=== PATIENT | male | born 1935 | race Caucasian/White ===

== ENCOUNTER → 2020-01-30 10:45 | Outpatient (BNVA) | payer MEDICARE, BC, SELFPAY | PROVIDERS: PCP Internal Medicine; Visit Provider Hospitalist | DX: J44.9 Chronic obstructive pulmonary disease, unspecified (principal); R91.8 Other nonspecific abnormal finding of lung field | CPT/HCPCS: 99212 ==

== ENCOUNTER 2020-02-24 12:06 | Outpatient (REF) | payer MEDICARE, BC, SELFPAY | END 2020-02-24 12:07 | disposition home or self-care (01) | LOC: HO.LAB 12:06 | PROVIDERS: PCP Internal Medicine; Visit Provider Internal Medicine | DX: Z20.828 Contact with and (suspected) exposure to other viral communicable diseases (principal) | CPT/HCPCS: C9803; U0003 ==

== ENCOUNTER 2020-02-28 08:03 | Emergency (ER) | payer MEDICARE, BC, SELFPAY ==
[2020-02-28 08:13] VITALS: BP 131/55; PULSE 96; RESP 24; TEMP 36.8; O2SAT 94; BMI 25.1
[2020-02-28 08:19] VITALS: RESP 16
--- NOTE | 2020-02-28 08:29 | ED_ITS ---
HPI - Male Genitourinary General Chief complaint: Urogenital-Male Stated complaint: abnormal labs Time Seen by Provider: 02/28/20 08:20 Source: patient Mode of arrival: ambulatory Limitations: no limitations History of Present Illness HPI Narrative: Patient comes to the emergency room, concerned that he has been drinking a lot of water, but he has not been urinating be equal amount that he drinks. Patient states that he has no other complaints. Patient denies any suprapubic tenderness, no flank pain, no fever, no abdominal pain chest pain or shortness of breath. Related Data Home Medications Medication Instructions Recorded Confirmed amlodipine 5 mg tablet 5 mg PO DAILY 01/30/20 01/30/20 apixaban 2.5 mg tablet 2.5 mg PO BID 01/30/20 01/30/20 atorvastatin 40 mg tablet mg PO Q OTHER DAY PRN 01/30/20 01/30/20 clonazepam 1 mg tablet 1 mg PO BID PRN 01/30/20 01/30/20 hydrochlorothiazide 25 mg tablet 25 mg PO DAILY 01/30/20 01/30/20 ipratropium 0.5 mg-albuterol 3 mg 3 ml INHALATION Q4-6H PRN 01/30/20 01/30/20 (2.5 mg base)/3 mL nebulization soln lisinopril 40 mg tablet mg PO 01/30/20 01/30/20 omeprazole 20 mg capsule,delayed mg PO 01/30/20 01/30/20 release quetiapine 50 mg tablet mg PO 01/30/20 01/30/20 Previous Rx's Medication Instructions Recorded cefixime 400 mg PO DAILY 7 Days #7 cap 02/28/20 Allergies Allergy/AdvReac Type Severity Reaction Status Date / Time No Known Allergies Allergy Verified 01/30/20 17:43 Review of Systems Review of Systems: Constitutional : No Weight loss, No Fever, No Chills, No Night Sweats, No Fatigue, No Malaise ENT/Mouth : No Hearing loss, No Ear Pain, No Nasal Congestion, No Sinus Pain, No Hoarseness, No sore throat, No Rhinorrhea, No Swallowing Difficulty Eyes: No Eye Pain, No Swelling, No Redness, No Foreign Body, No Discharge, No Vision Changes Cardiovascular : No Chest Pain, No SOB, No Dyspnea on Exertion, No Orthopnea, No Edema, No Palpitations Respiratory : No Cough, No Sputum, No Wheezing, No Smoke Exposure, No Dyspnea Gastrointestinal : No Nausea, No Vomiting, No Diarrhea, No Constipation, No abdominal Pain, No Hematochezia, No Melena Genitourinary : no irregular bleeding, No Dysuria, No Urinary Frequency, No Hematuria, No Urinary Incontinence, No Urgency, No Flank Pain, No Urinary Flow Changes, No Hesitancy Musculoskeletal : No joint pain, No Myalgias, No Joint Swelling Skin : No Skin Lesions, No rash Neuro : No Weakness, No Numbness, No Paresthesias, No Loss of Consciousness, No Dizziness, No Headache Psych : No Anxiety/Panic, No Depression, No SI/HI/AH/VH, No Social Issues, Heme/Lymph: No Bruising, No Bleeding,No Lymphadenopathy Endocrine : No Polyuria, No Polydipsia, No Temperature Intolerance [facility] Past Medical History Medical History (Updated 02/28/20 @ 16:48 by Yanet Duffy MD) COPD (chronic obstructive pulmonary disease) [place], old Pulmonary nodules Surgical History (Updated 02/28/20 @ 08:32 by Yanet Duffy MD) History of heart artery stent Social History Social History (Updated 01/30/20 @ 11:05 by Carleen Smallwood MA) Alcohol intake: never Smoking Status: Former smoker Tobacco Type: Cigarette Years Smoked: 15 years old Use of substances other than those prescribed or required for medical reasons: No Advance Directives: No Advance Directives Information Provided: No Physical Exam Vital Signs: Vital Signs: Last Vital Signs Temp 97.7 F 02/28/20 15:56 Pulse 57 02/28/20 15:56 Resp 16 02/28/20 15:56 BP 102/50 L 02/28/20 15:56 Pulse Ox 94 02/28/20 15:56 Body Mass Index 25.1 Appearance: Alert. Oriented X3. No acute distress. Eyes: Pupils equal, round and reactive to light. ENT: Pharynx normal. Neck: Normal inspection. Neck supple. No lymph nodes noted. No crepitus CVS: Normal heart rate and rhythm. Pulses normal. Normal S1 and S2 Respiratory: No respiratory distress. Breath sounds normal. No Wheezing. No rales Abdomen: Soft and nontender. No rigidity. No distention. good BS x4 Skin: Skin warm and dry. Normal skin color. Normal skin turgor. Extremities: No lower extremity edema. No lower extremity edema. No L acerations. No Rash Neuro: Oriented X 3. No motor deficit. No sensory deficit. Moving all extermit ies. No slurred speech. Course Course Course Narrative: Patient's creatinine is 1.94, we do not have any previous labs to compare this to. Given the history of drinking plenty of fluids with decreased urine output, we will rule out obstruction, CT scan pending, patient receiving IV fluids, labs to be repeated to check for creatinine improvement Patient's creatinine improved to 1.82, patient likely has chronic kidney disease. No obstruction. Urine is positive for UTI, patient being treated w ith IV ceftriaxone and oral cephalosporins for home. MDM - Male Genitourinary Lab Data Result diagrams: 02/28/20 12:19 02/28/20 16:06 Labs: Lab Results 02/28/20 02/28/20 02/28/20 Range/Units 08:58 08:58 08:58 WBC 6.4 (4.8-10.8) X10*3/uL RBC 3.65 L (4.60-5.80) X10*6/uL Hgb 10.3 L (14.0-18.0) g/dl Hct 32.0 L (42-52) % MCV 87.7 (80-98) fL MCH 28.2 (27.0-33.0) pg MCHC 32.2 (31.0-36.0) g/dl RDW 13.8 (11.0-16.0) % Plt Count 255 (160-400) X10*3/uL MPV 10.1 (9.4-12.4) fL Immature Gran % (Auto) 0.5 H (0.0-0.4) % Neut % (Auto) 73.2 H (45-73) % Lymph % (Auto) 12.6 L (20-40) % Luna % (Auto) 9.5 (2-11) % Eos % (Auto) 3.7 (0-4) % Baso % (Auto) 0.5 (0-2) % Lymph # (Auto) 0.8 L (1.2-4.9) X10*3/uL Luna # (Auto) 0.6 (0.1-1.2) X10*3/uL Eos # (Auto) 0.2 (0.0-0.4) X10*3/uL Baso # (Auto) 0.0 (0.0-0.2) X10*3/uL Abs Immat Gran (auto) 0.03 (0.00-0.03) X10*3/uL Absolute Neuts (auto) 4.7 (2.0-8.3) X10*3/uL Absolute Nucleated RBC 0.000 (0.0-0.012) X10*3/uL Nucleated RBC % (auto) 0.0 (0.0-0.2) /100WBC Sodium 132 L (135-145) mmol/L Potassium 4.6 (3.3-5.1) mmol/l Chloride 102 (96-108) mmol/L Carbon Dioxide 22 (22-29) mmol/L Anion Gap 13 (12-20) BUN 55 H (9-16) mg/dL Creatinine 1.94 H (0.5-1.4) mg/dL Estim Creat Clear Calc 30.3 Estimated GFR 33 Random Glucose 94 (60-115) mg/dL Calcium 7.8 L (8.4-10.2) mg/dL Urine Color YELLOW Urine Appearance TURBID Urine pH 5.5 (5.0-8.0) Ur Specific [place] 1.020 (1.005-1.025) Urine Protein NEG (NEG-TRACE) MG/DL Urine Glucose (UA) NEG (NEG) MG/DL Urine Ketones NEG (NEG) MG/DL Urine Blood 1+ H (NEG) Urine Nitrite POS H (NEG) Ur Leukocyte Esterase 2+ H (NEG) Urine RBC 0-2 (0) /HPF Urine WBC TNTC H (0-4) /HPF Ur Squamous Epith Cells NONE /LPF Urine Bacteria 2+ /LPF Urine Mucus 1+ /LPF 02/28/20 02/28/20 Range/Units 12:19 16:06 WBC 6.7 (4.8-10.8) X10*3/uL RBC 3.58 L (4.60-5.80) X10*6/uL Hgb 10.1 L (14.0-18.0) g/dl Hct 31.6 L (42-52) % MCV 88.3 (80-98) fL MCH 28.2 (27.0-33.0) pg MCHC 32.0 (31.0-36.0) g/dl RDW 13.7 (11.0-16.0) % Plt Count 259 (160-400) X10*3/uL MPV 10.2 (9.4-12.4) fL Immature Gran % (Auto) 0.3 (0.0-0.4) % Neut % (Auto) 70.6 (45-73) % Lymph % (Auto) 15.4 L (20-40) % Luna % (Auto) 10.0 (2-11) % Eos % (Auto) 3.0 (0-4) % Baso % (Auto) 0.7 (0-2) % Lymph # (Auto) 1.0 L (1.2-4.9) X10*3/uL Luna # (Auto) 0.7 (0.1-1.2) X10*3/uL Eos # (Auto) 0.2 (0.0-0.4) X10*3/uL Baso # (Auto) 0.1 (0.0-0.2) X10*3/uL Abs Immat Gran (auto) 0.02 (0.00-0.03) X10*3/uL Absolute Neuts (auto) 4.7 (2.0-8.3) X10*3/uL Absolute Nucleated RBC 0.000 (0.0-0.012) X10*3/uL Nucleated RBC % (auto) 0.0 (0.0-0.2) /100WBC Sodium 135 (135-145) mmol/L Potassium 4.9 (3.3-5.1) mmol/l Chloride 104 (96-108) mmol/L Carbon Dioxide 24 (22-29) mmol/L Anion Gap 12 (12-20) BUN 51 H (9-16) mg/dL Creatinine 1.82 H (0.5-1.4) mg/dL Estim Creat Clear Calc 32.3 Estimated GFR 36 Random Glucose 90 (60-115) mg/dL Calcium 7.9 L (8.4-10.2) mg/dL Urine Color Urine Appearance Urine pH (5.0-8.0) Ur Specific [place] (1.005-1.025) Urine Protein (NEG-TRACE) MG/DL Urine Glucose (UA) (NEG) MG/DL Urine Ketones (NEG) MG/DL Urine Blood (NEG) Urine Nitrite (NEG) Ur Leukocyte Esterase (NEG) Urine RBC (0) /HPF Urine WBC (0-4) /HPF Ur Squamous Epith Cells /LPF Urine Bacteria /LPF Urine Mucus /LPF Discharge Plan Discharge Clinical Impression: Urinary tract infection Qualifiers: Urinary tract infection type: site unspecified Hematuria presence: without hematuria Qualified Code(s): N39.0 - Urinary tract infection, site not specified Patient Disposition: Home, Self-Care Instructions: Urinary Tract Infection in Men (ED) Additional Instructions: Please follow-up with your primary care physician tomorrow. If you have any worsening or new symptoms, please return to the emergency room or call 911 Prescriptions: New cefixime 400 mg capsule 400 mg PO DAILY 7 Days Qty: 7 RF: 0 No Action lisinopril 40 mg tablet PO RF: 0 omeprazole 20 mg capsule,delayed release(DR/EC) PO RF: 0 amlodipine 5 mg tablet 5 mg PO DAILY RF: 0 atorvastatin 40 mg tablet PO Q OTHER DAY PRNRF: 0 Eliquis 2.5 mg tablet 2.5 mg PO BID RF: 0 hydrochlorothiazide 25 mg tablet 25 mg PO DAILY RF: 0 clonazepam 1 mg tablet 1 mg PO BID PRNRF: 0 quetiapine 50 mg tablet PO RF: 0 ipratropium-albuterol 0.5 mg-3 mg(2.5 mg base)/3 mL solution for nebulization 3 ml inhalation Q4-6H PRNRF: 0
[2020-02-28 09:03] LABS: MANUAL DIFF FLAG NO
[2020-02-28 09:04] LABS: Basophils Percent Auto 0.5 % (0-2); Eosinophils Absolute Auto 0.2 X10*3/uL (0.0-0.4); Eosinophils Percent Auto 3.7 % (0-4); Hemoglobin 10.3 g/dl (14.0-18.0); Imm Gran Abs Auto 0.03 X10*3/uL (0.00-0.03); Imm Gran Pct Auto 0.5 % (0.0-0.4); Lymphocytes Absolute Auto 0.8 X10*3/uL (1.2-4.9); Lymphocytes Percent Auto 12.6 % (20-40); Mean Corpuscular HGB Conc 32.2 g/dl (31.0-36.0); Mean Corpuscular Hemoglobin 28.2 pg (27.0-33.0); Mean Corpuscular Volume 87.7 fL (80-98); Mean Platelet Volume 10.1 fL (9.4-12.4); Monocytes Absolute Auto 0.6 X10*3/uL (0.1-1.2); Monocytes Percent Auto 9.5 % (2-11); Neutrophils Absolute Auto 4.7 X10*3/uL (2.0-8.3); Neutrophils Percent Auto 73.2 % (45-73); Platelet Count 255 X10*3/uL (160-400); Red Blood Count 3.65 X10*6/uL (4.60-5.80); Red Cell Distribution Width 13.8 % (11.0-16.0); White Blood Count 6.4 X10*3/uL (4.8-10.8)
[2020-02-28 09:05] LABS: Glucose Urine UA NEG (NEG); Leukocyte Esterase Urine 2+ (NEG); Nitrite Urine POS (NEG); PH 5.5 (5.0-8.0); Urine Blood 1+ (NEG); Urine Ketones NEG (NEG); Urine Protein NEG (NEG-TRACE)
[2020-02-28 09:22] LABS: Appearance Urine TURBID; Color Urine YELLOW
[2020-02-28 09:23] LABS: Bacteria Urine 2+ /LPF; Mucus Urine 1+ /LPF; RBC Urine 0-2 /HPF (0); WBC Urine TNTC /HPF (0-4)
[2020-02-28 09:39] LABS: Anion Gap 13 (12-20); Blood Urea Nitrogen 55 mg/dL (9-16); Calcium 7.8 mg/dL (8.4-10.2); Carbon Dioxide 22 mmol/L (22-29); Chloride 102 mmol/L (96-108); Creatinine Clr Calc Pharmacy 30.3; Estimated Glomerular Filt Rate 33; Glucose Random 94 mg/dL (60-115); Potassium 4.6 mmol/l (3.3-5.1); Sodium 132 mmol/L (135-145)
--- NOTE | 2020-02-28 09:57 | CT_ITS ---
EXAMINATION: CT ABDOMEN AND PELVIS WITHOUT CONTRAST CLINICAL INFORMATION: Evaluate for obstruction. COMPARISON: 10/21/2019 TECHNIQUE: Multidetector volumetric imaging was performed from the superior aspect of the liver through the pubic symphysis. Sagittal and coronal reformatted images were obtained on the technologist's workstation. This CT examination was performed using dose optimization techniques as appropriate, variously including the following: *Automated exposure control *Adjustment of mA and/or kV according to patient size (this includes techniques or standardized protocols for targeted exams where dose is matched to indication/reason for exam; i.e. extremities or head) *Use of iterative reconstruction technique DLP: 663 mGy-cm FINDINGS: LUNG BASES: Emphysema. Bibasilar dependent subsegmental atelectasis. Coronary calcifications. Postsurgical changes, left posterior medial hemithorax. LIVER, GALLBLADDER, AND BILIARY TREE: The liver is normal in size, shape, and attenuation. No focal hepatic lesion or biliary ductal dilatation is present. Gallbladder unremarkable. PANCREAS: Unremarkable. SPLEEN: Unremarkable. ADRENAL GLANDS: Unremarkable. KIDNEYS AND URETERS: The kidneys are normal in size, shape, and attenuation. No hydronephrosis, hydroureter, or calculi seen. No perinephric stranding. BLADDER: Unremarkable. GASTROINTESTINAL TRACT: Scattered colonic diverticula, most concentrated within the sigmoid colon. Normal appendix. Small bowel unremarkable. Small sliding type hiatal hernia. ABDOMINAL WALL: No significant hernia is appreciated. LYMPH NODES: Normal. VASCULAR: Aorta is atherosclerotic. Infrarenal abdominal aortic ectasia measuring 2.5 cm. PELVIC VISCERA: Prostate mildly enlarged measuring 4 cm transversely. OSSEOUS STRUCTURES: No acute or suspicious osseous abnormalities. CT/CT abdomen pelvis wo con IMPRESSION: * No evidence of bowel obstruction. * No acute findings within the abdomen or pelvis * Diverticulosis without evidence of diverticulitis. * Small sliding-type hiatal hernia..
[2020-02-28] MEDS: 0.9 % Sodium Chloride 1,000 ML 999 ML IVCONT (10:33)
[2020-02-28 12:00] VITALS: PULSE 70; RESP 16; O2SAT 96
[2020-02-28 12:26] LABS: Basophils Absolute Auto 0.1 X10*3/uL (0.0-0.2); Basophils Percent Auto 0.7 % (0-2); Eosinophils Absolute Auto 0.2 X10*3/uL (0.0-0.4); Hematocrit 31.6 % (42-52); Hemoglobin 10.1 g/dl (14.0-18.0); Imm Gran Abs Auto 0.02 X10*3/uL (0.00-0.03); Imm Gran Pct Auto 0.3 % (0.0-0.4); Lymphocytes Percent Auto 15.4 % (20-40); MANUAL DIFF FLAG NO; Mean Corpuscular Hemoglobin 28.2 pg (27.0-33.0); Mean Corpuscular Volume 88.3 fL (80-98); Mean Platelet Volume 10.2 fL (9.4-12.4); Monocytes Absolute Auto 0.7 X10*3/uL (0.1-1.2); Neutrophils Absolute Auto 4.7 X10*3/uL (2.0-8.3); Neutrophils Percent Auto 70.6 % (45-73); Platelet Count 259 X10*3/uL (160-400); Red Blood Count 3.58 X10*6/uL (4.60-5.80); Red Cell Distribution Width 13.7 % (11.0-16.0); White Blood Count 6.7 X10*3/uL (4.8-10.8)
[2020-02-28 14:00] VITALS: PULSE 76; RESP 16; O2SAT 96
[2020-02-28 15:56] VITALS: BP 102/50; PULSE 57; RESP 16; TEMP 36.5; O2SAT 94
--- NOTE | 2020-02-28 15:57 | PC.NURSE ---
PATIENT VOIDED 900 ML URINE ,BALA AARON AWARE.
[2020-02-28 16:41] LABS: Anion Gap 12 (12-20); Blood Urea Nitrogen 51 mg/dL (9-16); Calcium 7.9 mg/dL (8.4-10.2); Carbon Dioxide 24 mmol/L (22-29); Chloride 104 mmol/L (96-108); Creatinine Clr Calc Pharmacy 32.3; Estimated Glomerular Filt Rate 36; Glucose Random 90 mg/dL (60-115); Potassium 4.9 mmol/l (3.3-5.1); Sodium 135 mmol/L (135-145)
[2020-02-28] MEDS: cefTRIAXone sodium 1 GM in 0.9 % Sodium Chloride 50 ML IV (17:05)
== END 2020-02-28 17:37 | disposition home or self-care (01) ==
PROVIDERS: Emergency Provider Emergency Medicine; PCP Internal Medicine
DX: N39.0 Urinary tract infection, site not specified (principal); I25.2 Old myocardial infarction; Z79.899 Other long term (current) drug therapy; Z87.891 Personal history of nicotine dependence
CPT/HCPCS: 36415; 51798; 74176; 80048; 81001; 85025; 87086; 87088; 87186; 96361; 96365; 99284; 99285; J0696

== ENCOUNTER → 2020-07-29 10:24 | Outpatient (BNVA) | payer MEDICARE, BC, SELFPAY | PROVIDERS: PCP Internal Medicine; Visit Provider Hospitalist | DX: R91.8 Other nonspecific abnormal finding of lung field (principal); J18.9 Pneumonia, unspecified organism; J41.8 Mixed simple and mucopurulent chronic bronchitis; Z79.899 Other long term (current) drug therapy; Z72.0 Tobacco use | CPT/HCPCS: 99212 ==

== ENCOUNTER → 2020-11-11 09:51 | Outpatient (BNVA) | payer MEDICARE, BC, SELFPAY | PROVIDERS: PCP Internal Medicine; Visit Provider Hospitalist | DX: J41.8 Mixed simple and mucopurulent chronic bronchitis (principal); J18.9 Pneumonia, unspecified organism; R91.8 Other nonspecific abnormal finding of lung field | CPT/HCPCS: 99212 ==

== ENCOUNTER → 2020-12-28 09:30 | Outpatient (BNVA) | payer MEDICARE, BC, SELFPAY | PROVIDERS: PCP Internal Medicine; Visit Provider Hospitalist | DX: J18.9 Pneumonia, unspecified organism (principal); J41.8 Mixed simple and mucopurulent chronic bronchitis; R91.8 Other nonspecific abnormal finding of lung field; G47.33 Obstructive sleep apnea (adult) (pediatric); Z99.89 Dependence on other enabling machines and devices | CPT/HCPCS: 99212 ==

== ENCOUNTER → 2021-06-29 09:53 | Outpatient (BNVA) | payer MEDICARE, BC, SELFPAY | PROVIDERS: PCP Internal Medicine; Visit Provider Hospitalist | DX: J18.9 Pneumonia, unspecified organism (principal); R91.8 Other nonspecific abnormal finding of lung field; J41.8 Mixed simple and mucopurulent chronic bronchitis; G47.33 Obstructive sleep apnea (adult) (pediatric); Z99.89 Dependence on other enabling machines and devices | CPT/HCPCS: 99212 ==

== ENCOUNTER 2021-08-25 13:42 | Outpatient (REF) | payer MEDICARE, BC, SELFPAY ==
--- NOTE | ~2021-08-25 | XR_ITS ---
EXAMINATION: XR WRIST, LEFT CLINICAL INFORMATION: Pain. COMPARISON: None TECHNIQUE: PA, lateral, and oblique views of the left wrist. FINDINGS: There is diffuse osteopenia. No visible acute fracture, dislocation or subluxation seen. There is mild calcification of TFC. The intercarpal, carpometacarpal, and radiocarpal joint spaces are maintained normal. XR/XR wrist LT min 3V IMPRESSION: Diffuse osteopenia. Triangular fibrocartilage calcification. No acute fracture or dislocation seen.
== END 2021-08-25 13:43 | disposition home or self-care (01) ==
LOC: HO.HOSX 13:42
PROVIDERS: Visit Provider Physician Assistant
DX: S63.502A Unspecified sprain of left wrist, initial encounter (principal)
CPT/HCPCS: 73110; 99202

== ENCOUNTER → 2021-12-29 10:19 | Outpatient (BNVA) | payer MEDICARE, BC, SELFPAY | PROVIDERS: PCP Internal Medicine; Visit Provider Hospitalist | DX: R91.8 Other nonspecific abnormal finding of lung field (principal); J44.9 Chronic obstructive pulmonary disease, unspecified; J18.9 Pneumonia, unspecified organism; G47.33 Obstructive sleep apnea (adult) (pediatric); Z99.89 Dependence on other enabling machines and devices | CPT/HCPCS: 99212 ==

== ENCOUNTER → 2022-06-29 08:49 | Outpatient (BNVA) | payer MEDICARE, BC, SELFPAY | PROVIDERS: PCP Internal Medicine; Visit Provider Nurse Practitioner Family | DX: J41.8 Mixed simple and mucopurulent chronic bronchitis (principal); R00.1 Bradycardia, unspecified | CPT/HCPCS: 93005; 99212 ==